=== PATIENT | male | born 1965 | race Caucasian/White ===

== ENCOUNTER → 2018-12-30 | Outpatient (CLI) | payer BC ==
--- NOTE | 2018-12-30 21:28 | CONS ---
CONSULTATION DATE OF SERVICE: 12/30/2018 53-year-old gentleman who has been evaluated in the sleep center for possible obstructive sleep apnea-hypopnea syndrome. HISTORY OF PRESENT ILLNESS/SLEEP WAKE EVALUATION: Patient usual sleep schedule on working days from around 10 to 11 p.m. until 5:45 am and on weekends from 11 to midnight until 7 or 8 a.m. Usually no problems with falling asleep, although he has TV set in bedroom. Sleeps on the side position. Loud snoring, witnessed episodes of stopped breathing during the sleep. Episodes of restless legs. The patient wakes up from sleep about 3 times with 1 episode of nocturia. Sometimes he started to see dreams site while falling asleep. Possible hyponogogical hallucinations. No history of sleep paralysis or cataplexy. Patient may take occasionally naps in the middle afternoon. [place] Sleepiness Scale increased to 11. He has difficulties to pay attention. Problems with concentration, irritability and anxiety. PAST MEDICAL HISTORY: Positive for acid reflux, Haji's esophagus. Allergies, hypertension. Nasal fracture. PAST SURGICAL HISTORY: Hemorrhoidectomy, three procedures for improving Haji's esophagus. MEDICATIONS: Nexium, Zyrtec, hydrochlorothiazide, amlodipine. SOCIAL HISTORY: Positive for smoking on and off up to 30 years, about one pack a day. Alcohol consumption occasional. FAMILY HISTORY: Hypertension, asthma, diabetes, acid reflux. PHYSICAL EXAM: gentleman without distress. BP 139/92, HR 78, RR 16, height 5 feet 7 inches, weight 186, BMI 29.1. Oxygen saturation at room air 97%. Temperature 98.7. Oropharynx: Extremely low position of soft palate. Mallampati 4. Restriction of nasal breathing. Nasal septum deviation. Neck 15-1/2 inches in circumference. Abdomen slightly obese. Neck Supple, no JVD. Thyroid is not palpable. LUNGS Clear to percussion and to auscultation. Good air exchange. No wheezing or rhonchi. HEART S1, S2 regular. No murmurs, gallops, or rubs. ABDOMEN: Slightly obese. Soft and nontender. Bowel sounds are present. No organomegaly appreciated. EXTREMITIES No clubbing or cyanosis. ELECTRO OPTICS ENGINEER Awake, alert, and oriented X3. Cranial nerves 2 to 7 intact. There is no fasciculation or atrophy. noted. No focal deficits observed. IMPRESSION: 1. Loud snoring, witnessed episodes of stopped breathing during the sleep, extremely low soft palate, Mallampati 4, sleepiness, obstructive sleep apnea-hypopnea syndrome. 2. Overweight, borderline to obesity BMI 29.1. 3. Acid reflux. 4. History of Haji's esophagus, status post three procedures of treatment. 5. Allergy. 6. Hypertension. 7. Status post hemorrhoidectomy. 8. History of nasal fracture, possibly nasal septum deviation, restriction of nasal breathing. PLAN: 1. Polysomnography for evaluation of patient's breathing during sleep. 2. CPAP/BiPAP titration if sleep study confirms obstructive sleep apnea-hypopnea syndrome. 3. Preferable position during sleep on the side. 4. No driving if patient feels any sleepiness. 5. I will see patient for follow up visit to explain results of testing and following plan. Thank you very much for referring this patient for consultation. Sincerely, Óscar Bernal MD, PhD, FAASM Diplomat of [place] [employer] [place] [employer] [facility] [place] MMODL / EMAN: [id number] /
== END | disposition home or self-care (01) ==
LOC: SLEEP 13:16
PROVIDERS: ATTEND Internal Medicine
DX: G47.33 Obstructive sleep apnea (adult) (pediatric) (principal); E66.9 Obesity, unspecified; K21.9 Gastro-esophageal reflux disease without esophagitis; I10 Essential (primary) hypertension; F17.210 Nicotine dependence, cigarettes, uncomplicated; T78.40XA Allergy, unspecified, initial encounter; Z68.29 Body mass index [BMI] 29.0-29.9, adult; Z87.19 Personal history of other diseases of the digestive system; Z87.81 Personal history of (healed) traumatic fracture; Z98.890 Other specified postprocedural states; Z79.899 Other long term (current) drug therapy
CPT/HCPCS: 99211

== ENCOUNTER → 2023-12-29 | Outpatient (CLI) | payer OTHER ==
--- NOTE | 2023-12-30 16:57 | CTL ---
EXAMINATION TYPE: CT Low Dose Lung DATE OF EXAM: 12/29/2023 4:27 PM CLINICAL INDICATION:Male, 58 years old with history of Z12.2 SCRN FOR LUNG CANCER,F17.210 NICOTINE DE PEND; personal tobacco use , history of tobacco use. COMPARISON: 03/25/2014. TECHNIQUE: Multiple axial non-contrast scans were obtained from approximately the lung apices through the upper abdomen. Coronal and sagittal reformatted images were obtained. Low dose technique was uti lized. CT DLP: 62 mGycm, Automated exposure control for dose reduction was used. CT Contrast: Contrast used: None Oral contrast used: None FINDINGS: ======== Lack of intravenous contrast and low dose technique limits the evaluation of the vascular and soft ti ssue structures. LUNGS: No evidence of pulmonary fibrosis. No evidence of focal consolidation, pneumothorax or pleural effusion. Centrilobular emphysema changes. Nodules: RUL: 3 mm series 9 image 29 calcified granuloma image 20 measuring 3 mm. RML: Subpleural 2-3 mm nodules along the middle lobe series 9 image 37 36 has examples are felt t o be atelectasis or scarring are stable from prior. RLL: Calcified granuloma image 33. AMINA: None. LLL: 4 mm image 48 AIRWAY: Patent and unremarkable. HEART: Size within normal limits. MEDIASTINUM: No gross evidence of adenopathy. Moderate hiatal hernia. VASCULATURE: No aortic aneurysm. MUSCULOSKELETAL: Mild disc degeneration changes are present throughout the thoracolumbar spine. SOFT TISSUES/LYMPH NODES: Unremarkable. LOWER NECK: No significant findings. UPPER ABDOMEN: No significant findings. IMPRESSION: 1. No clinically significant pulmonary nodules. 2. Mild emphysema. CT LUNG RAD AND CT CHEST RECOMMENDATION: Lung-Rad 2 Benign Appearance or Behavior: Continue annual sc reening with LDCT in 12 months. S Modifier (other clinically significant findings): None Recommend smoking cessation (if current smoker), or continuation of smoking cessation (if prior smoke r). Annual screening for lung cancer with low-dose computed tomography is recommended in adults ages 55 to 77 years who have a 30 pack-year smoking history and currently smoke or have quit within the pa st 15 years. Screening should be discontinued once a person has not smoked for 15 years or develops a health problem that substantially limits life expectancy or the ability or willingness to have curat jackson lung surgery. Lung rads 2021 [email or web address]
== END | disposition home or self-care (01) ==
LOC: RADCTMAIN 15:50
PROVIDERS: ATTEND Family Medicine
DX: Z12.2 Encounter for screening for malignant neoplasm of respiratory organs (principal); J43.2 Centrilobular emphysema; F17.210 Nicotine dependence, cigarettes, uncomplicated
CPT/HCPCS: 71271

== ENCOUNTER 2024-02-15 01:27 | Emergency (ER) | payer OTHER ==
--- NOTE | 2024-02-15 01:51 | ED ---
Weakness HPI - General Chief complaint: Weakness Stated complaint: Weakness, Pain all over Time Seen by Provider: 02/15/24 01:33 Source: patient, RN notes reviewed, old records reviewed Mode of arrival: ambulatory Limitations: no limitations - History of Present Illness Initial comments: This is a 58-year-old this male presents to the ER for evaluation of bodyaches and pains generalized body aches pains and weakness. States symptoms been going on for a while now worsening today, he does admit to increasing workload decreasing rest not eating and drinking well and not feeling well. Patient has no fevers denies sick contacts or recent travel history MD Complaint: generalized weakness, lack of energy, difficulty walking -: days(s) Location: generalized Severity: moderate Consistency: constant Improves with: evening Worsens with: none Context: history of similar Associated Symptoms: denies other symptoms - Related Data Home Medications Medication Instructions Recorded Confirmed Nicotine 21Mg/24Hr Patch [Habitrol 1 each TRANSDERM DAILY 08/03/15 08/08/15 21Mg/24Hr Patch] Omeprazole 20 mg PO DAILY 08/03/15 08/08/15 Allergies Allergy/AdvReac Type Severity Reaction Status Date / Time No Known Allergies Allergy Verified 02/15/24 01:31 Review of Systems ROS Statement: Those systems with pertinent positive or pertinent negative responses have been documented in the HPI. ROS Other: All systems not noted in ROS Statement are negative. Past Medical History Past Medical History: GERD/Reflux, Hypertension Additional Past Medical History / Comment(s): HTN-resolved no longer on meds,Haji's Esophagus History of Any Multi-Drug Resistant Organisms: None Reported Additional Past Surgical History / Comment(s): EGD,colonoscopy,hemorrhoidectomy Past Anesthesia/Blood Transfusion Reactions: No Reported Reaction Additional Past Anesthesia/Blood Transfusion Reaction / Comment(s): no hx blood transfusion Past Psychological History: No Psychological Hx Reported Smoking Status: Current every day smoker Past Alcohol Use History: Occasional Past Drug Use History: None Reported - Past Family History Father Family Medical History: No Reported History Mother Additional Family Medical History / Comment(s): brain aneurysm General Exam Limitations: no limitations General appearance: alert, in no apparent distress, anxious, in distress Head exam: Present: atraumatic, normocephalic, normal inspection Eye exam: Present: normal appearance, PERRL, EOMI. Absent: scleral icterus, conjunctival injection, periorbital swelling ENT exam: Present: normal exam, mucous membranes moist Neck exam: Present: normal inspection. Absent: tenderness, meningismus, lymphadenopathy Respiratory exam: Present: normal lung sounds bilaterally. Absent: respiratory distress, wheezes, rales, rhonchi, stridor Cardiovascular Exam: Present: regular rate, normal rhythm, normal heart sounds. Absent: systolic murmur, diastolic murmur, rubs, gallop, clicks GI/Abdominal exam: Present: soft, normal bowel sounds. Absent: distended, tenderness, guarding, rebound, rigid Extremities exam: Present: normal inspection, full ROM, normal capillary refill. Absent: tenderness, pedal edema, joint swelling, calf tenderness Back exam: Present: normal inspection Neurological exam: Present: alert, oriented X3, CN II-XII intact Psychiatric exam: Present: normal affect, normal mood Skin exam: Present: warm, dry, intact, normal color. Absent: rash Course Vital Signs 02/15/24 02/15/24 02/15/24 01:28 03:31 04:47 Temperature 98.3 F 97.8 F Pulse Rate 90 74 71 Respiratory 18 17 16 Rate Blood Pressure 148/95 123/80 121/80 O2 Sat by Pulse 97 96 96 Oximetry - Reevaluation(s) Reevaluation #1: 02/15/24 02:02 Medical records reviewed Reevaluation #2: 02/15/24 02:02 Patient informed of results and questions answered Reevaluation #3: patient is informed of results and questions answered Reevaluation #4: Was pt. sent in by a medical professional or institution (, PA, OYSTERMAN, urgent care, hospital, or long term...) When possible be specific @ -no Did you speak to anyone other than the patient for history (EMS, parent, family, police, friend...)? What history was obtained from this source @ -no Did you review nursing and triage notes (agree or disagree)? Why? @ -agree Are old charts reviewed (outside hosp., previous admission, EMS record, old EKG, old radiological studies, urgent care reports/EKG's, long term records)? Report findings @ -yes Differential Diagnosis (chest pain, altered mental status, abdominal pain women, abdominal pain men, vaginal bleeding, weakness, fever, dyspnea, syncope, headache, dizziness, GI bleed, back pain, seizure, CVA, palpatations, mental health, musculoskeletal)? @ -prior EKG interpreted by me (3pts min.). @ -no X-rays interpreted by me (1pt min.). @ -yes negative for acute disease CT interpreted by me (1pt min.). @ -no U/S interpreted by me (1pt. min.). @ -no What testing was considered but not performed or refused? (CT, X-rays, U/S, labs)? Why? @ -none What meds were considered but not given or refused? Why? @ -none Did you discuss the management of the patient with other professionals (professionals i.e. DrOmer, PA, OYSTERMAN, lab, RT, psych nurse, nursing home social worker, hotbed transfer operator, teacher, plain clothes police officer, case folder)? Give summary @ -no Was smoking cessation discussed for >3mins.? @ -no Was critical care preformed (if so, how long)? @ -no Were there social determinants of health that impacted care today? How? (Homelessness, low income, unemployed, alcoholism, drug addiction, transportation, low edu. Level, literacy, decrease access to med. care, senior care, rehab)? @ -none Was there de-escalation of care discussed even if they declined (Discuss DNR or withdrawal of care, Hospice)? DNR status @ -no What co-morbidities impacted this encounter? (DM, HTN, Smoking, COPD, CAD, Cancer, CVA, ARF, Chemo, Hep., AIDS, mental health diagnosis, sleep apnea, morbid obesity)? @ -none Was patient admitted / discharged? Hospital course, mention meds given and route, prescriptions, significant lab abnormalities, going to OR and other pertinent info. @ - 58 Male to the ER for evaluation patient can be discharged home is currently feels well with no acute findings of symptoms Discharged Undiagnosed new problem with uncertain prognosis? @ -no Drug Therapy requiring intensive monitoring for toxicity (Heparin, Nitro, Insulin, Cardizem)? @ -no Were any procedures done? @ -no Diagnosis/symptom? @ -Weakness Acute, or Chronic, or Acute on Chronic? @ -Acute Uncomplicated (without systemic symptoms) or Complicated (systemic symptoms)? @ -Complicated Side effects of treatment? @ -no Exacerbation, Progression, or Severe Exacerbation? @ -exacerbation Poses a threat to life or bodily function? How? (Chest pain, USA, CO, pneumonia, PE, COPD, DKA, ARF, appy, cholecystitis, CVA, Diverticulitis, Homicidal, Suicidal, threat to staff... and all critical care pts) @ -yes Reevaluation #5: Differential Weakness: Hypoglycemia, shock, sepsis, hyponatremia, anemia, infection, CO, ETOH, adverse medicine reaction, overdose, stroke, this is not meant to be an all-inclusive list. EKG Findings - EKG Comments: EKG Findings:: EKG is sinus 82 VT 150 QRS 84 QTc 430 - EKG Results: EKG: interpreted by CIARAN Medical Decision Making - Medical Decision Making 58 Male to the ER for evaluation patient can be discharged home is currently feels well with no acute findings of symptoms - Lab Data Result diagrams: 02/15/24 02:01 02/15/24 02:01 Lab Results 02/15/24 02/15/24 02/15/24 Range/Units 02:01 02:01 02:01 WBC 10.6 (3.8-10.6) k/uL RBC 4.76 (4.30-5.90) m/uL Hgb 13.8 (13.0-17.5) gm/dL Hct 40.8 (39.0-53.0) % MCV 85.8 (80.0-100.0) fL MCH 29.1 (25.0-35.0) pg MCHC 33.9 (31.0-37.0) g/dL RDW 12.0 (11.5-15.5) % Plt Count 404 (150-450) k/uL MPV 7.5 Neutrophils % 71 % Lymphocytes % 16 % Monocytes % 9 % Eosinophils % 2 % Basophils % 1 % Neutrophils # 7.5 (1.3-7.7) k/uL Lymphocytes # 1.7 (1.0-4.8) k/uL Monocytes # 1.0 (0-1.0) k/uL Eosinophils # 0.2 (0-0.7) k/uL Basophils # 0.1 (0-0.2) k/uL PT 10.2 (10.0-12.5) sec INR 0.9 (<1.2) APTT 26.9 (22.0-30.0) sec Sodium (137-145) mmol/L Potassium (3.5-5.1) mmol/L Chloride (98-107) mmol/L Carbon Dioxide (22-30) mmol/L Anion Gap mmol/L BUN (9-20) mg/dL Creatinine (0.66-1.25) mg/dL Est GFR (CKD-EPI)AfAm (>60 ml/min/1.73 sqM) Est GFR (CKD-EPI)NonAf (>60 ml/min/1.73 sqM) Glucose (74-99) mg/dL Plasma Lactic Acid Pollo (0.7-2.0) mmol/L Calcium (8.4-10.2) mg/dL Phosphorus (2.5-4.5) mg/dL Magnesium (1.6-2.3) mg/dL Total Bilirubin (0.2-1.3) mg/dL AST (17-59) U/L ALT (4-49) U/L Alkaline Phosphatase (38-126) U/L Creatine Kinase (55-170) U/L Troponin I (0.000-0.034) ng/mL NT-Pro-B Natriuret Pep pg/mL Total Protein (6.3-8.2) g/dL Albumin (3.5-5.0) g/dL TSH (0.465-4.680) mIU/L Urine Color Yellow Urine Appearance Clear (Clear) Urine pH 6.0 (5.0-8.0) Ur Specific [place] 1.021 (1.001-1.035) Urine Protein Trace H (Negative) Urine Glucose (UA) Negative (Negative) Urine Ketones Negative (Negative) Urine Blood Small H (Negative) Urine Nitrite Negative (Negative) Urine Bilirubin Negative (Negative) Urine Urobilinogen <2.0 (<2.0) mg/dL Ur Leukocyte Esterase Negative (Negative) Urine RBC 3 (0-5) /hpf Urine WBC 1 (0-5) /hpf Urine Mucus Few H (None) /hpf Influenza Type A (PCR) (Not Detectd) Influenza Type B (PCR) (Not Detectd) RSV (PCR) (Not Detectd) SARS-CoV-2 (PCR) (Not Detectd) 02/15/24 02/15/24 02/15/24 Range/Units 02:01 02:01 02:01 WBC (3.8-10.6) k/uL RBC (4.30-5.90) m/uL Hgb (13.0-17.5) gm/dL Hct (39.0-53.0) % MCV (80.0-100.0) fL MCH (25.0-35.0) pg MCHC (31.0-37.0) g/dL RDW (11.5-15.5) % Plt Count (150-450) k/uL MPV Neutrophils % % Lymphocytes % % Monocytes % % Eosinophils % % Basophils % % Neutrophils # (1.3-7.7) k/uL Lymphocytes # (1.0-4.8) k/uL Monocytes # (0-1.0) k/uL Eosinophils # (0-0.7) k/uL Basophils # (0-0.2) k/uL PT (10.0-12.5) sec INR (<1.2) APTT (22.0-30.0) sec Sodium 137 (137-145) mmol/L Potassium 3.6 (3.5-5.1) mmol/L Chloride 102 (98-107) mmol/L Carbon Dioxide 25 (22-30) mmol/L Anion Gap 10 mmol/L BUN 14 (9-20) mg/dL Creatinine 0.74 (0.66-1.25) mg/dL Est GFR (CKD-EPI)AfAm >90 (>60 ml/min/1.73 sqM) Est GFR (CKD-EPI)NonAf >90 (>60 ml/min/1.73 sqM) Glucose 96 (74-99) mg/dL Plasma Lactic Acid Pollo 1.0 (0.7-2.0) mmol/L Calcium 8.7 (8.4-10.2) mg/dL Phosphorus 3.7 (2.5-4.5) mg/dL Magnesium 1.7 (1.6-2.3) mg/dL Total Bilirubin 0.9 (0.2-1.3) mg/dL AST 19 (17-59) U/L ALT 15 (4-49) U/L Alkaline Phosphatase 103 (38-126) U/L Creatine Kinase 47 L (55-170) U/L Troponin I <0.012 (0.000-0.034) ng/mL NT-Pro-B Natriuret Pep 210 pg/mL Total Protein 6.6 (6.3-8.2) g/dL Albumin 3.7 (3.5-5.0) g/dL TSH 1.440 (0.465-4.680) mIU/L Urine Color Urine Appearance (Clear) Urine pH (5.0-8.0) Ur Specific [place] (1.001-1.035) Urine Protein (Negative) Urine Glucose (UA) (Negative) Urine Ketones (Negative) Urine Blood (Negative) Urine Nitrite (Negative) Urine Bilirubin (Negative) Urine Urobilinogen (<2.0) mg/dL Ur Leukocyte Esterase (Negative) Urine RBC (0-5) /hpf Urine WBC (0-5) /hpf Urine Mucus (None) /hpf Influenza Type A (PCR) (Not Detectd) Influenza Type B (PCR) (Not Detectd) RSV (PCR) (Not Detectd) SARS-CoV-2 (PCR) (Not Detectd) 02/15/24 Range/Units 02:01 WBC (3.8-10.6) k/uL RBC (4.30-5.90) m/uL Hgb (13.0-17.5) gm/dL Hct (39.0-53.0) % MCV (80.0-100.0) fL MCH (25.0-35.0) pg MCHC (31.0-37.0) g/dL RDW (11.5-15.5) % Plt Count (150-450) k/uL MPV Neutrophils % % Lymphocytes % % Monocytes % % Eosinophils % % Basophils % % Neutrophils # (1.3-7.7) k/uL Lymphocytes # (1.0-4.8) k/uL Monocytes # (0-1.0) k/uL Eosinophils # (0-0.7) k/uL Basophils # (0-0.2) k/uL PT (10.0-12.5) sec INR (<1.2) APTT (22.0-30.0) sec Sodium (137-145) mmol/L Potassium (3.5-5.1) mmol/L Chloride (98-107) mmol/L Carbon Dioxide (22-30) mmol/L Anion Gap mmol/L BUN (9-20) mg/dL Creatinine (0.66-1.25) mg/dL Est GFR (CKD-EPI)AfAm (>60 ml/min/1.73 sqM) Est GFR (CKD-EPI)NonAf (>60 ml/min/1.73 sqM) Glucose (74-99) mg/dL Plasma Lactic Acid Pollo (0.7-2.0) mmol/L Calcium (8.4-10.2) mg/dL Phosphorus (2.5-4.5) mg/dL Magnesium (1.6-2.3) mg/dL Total Bilirubin (0.2-1.3) mg/dL AST (17-59) U/L ALT (4-49) U/L Alkaline Phosphatase (38-126) U/L Creatine Kinase (55-170) U/L Troponin I (0.000-0.034) ng/mL NT-Pro-B Natriuret Pep pg/mL Total Protein (6.3-8.2) g/dL Albumin (3.5-5.0) g/dL TSH (0.465-4.680) mIU/L Urine Color Urine Appearance (Clear) Urine pH (5.0-8.0) Ur Specific [place] (1.001-1.035) Urine Protein (Negative) Urine Glucose (UA) (Negative) Urine Ketones (Negative) Urine Blood (Negative) Urine Nitrite (Negative) Urine Bilirubin (Negative) Urine Urobilinogen (<2.0) mg/dL Ur Leukocyte Esterase (Negative) Urine RBC (0-5) /hpf Urine WBC (0-5) /hpf Urine Mucus (None) /hpf Influenza Type A (PCR) Not Detected (Not Detectd) Influenza Type B (PCR) Not Detected (Not Detectd) RSV (PCR) Not Detected (Not Detectd) SARS-CoV-2 (PCR) Not Detected (Not Detectd) - EKG Data -: EKG Interpreted by Me Disposition Clinical Impression: Dehydration, Weakness, Myalgia Disposition: HOME SELF-CARE Condition: Fair Instructions (If sedation given, give patient instructions): Weakness (ED) Is patient prescribed a controlled substance at d/c from ED?: No Referrals: Nat Sanz MD [Primary Care Provider] - 1-2 days
[2024-02-15] MEDS: SODIUM CHLORIDE 0.9% 1,000 ML IV STA ×2 (02:10→03:22)
[2024-02-15] MEDS: SODIUM CHLORIDE 0.9% 500 ML 500 ML IV STA (02:12)
[2024-02-15] MEDS: ACETAMINOPHEN TAB 500 MG TAB PO STA (02:13)
[2024-02-15] MEDS: KETOROLAC 15 MG/ML 1 ML VIAL IVP STA (02:16)
[2024-02-15] MEDS: MORPHINE SULFATE 4 MG/ML SYRINGE IV STA (02:19)
[2024-02-15 02:59] LABS: Basophils # (A) 0.1 k/uL (0-0.2); Basophils % (A) 1 %; Eosinophils # (A) 0.2 k/uL (0-0.7); Eosinophils % (A) 2 %; HCT 40.8 % (39.0-53.0); HGB 13.8 gm/dL (13.0-17.5); Lymphocytes # (A) 1.7 k/uL (1.0-4.8); Lymphocytes % (A) 16 %; MCH 29.1 pg (25.0-35.0); MCHC 33.9 g/dL (31.0-37.0); MCV 85.8 fL (80.0-100.0); Mean Platelet Volume 7.5; Monocytes % (A) 9 %; Neutrophils # (A) 7.5 k/uL (1.3-7.7); Neutrophils % (A) 71 %; Platelet Count 404 k/uL (150-450); RBC 4.76 m/uL (4.30-5.90); WBC 10.6 k/uL (3.8-10.6)
[2024-02-15 03:34] LABS: ALT 15 U/L (4-49); AST 19 U/L (17-59); African American GFR (CKD) >90 (>60 ml/min/1.73 sqM); Albumin 3.7 g/dL (3.5-5.0); Alkaline Phosphatase 103 U/L (38-126); Anion Gap 10 mmol/L; Blood Urea Nitrogen 14 mg/dL (9-20); Calcium 8.7 mg/dL (8.4-10.2); Carbon Dioxide 25 mmol/L (22-30); Chloride 102 mmol/L (98-107); Creatine Kinase 47 U/L (55-170); Glucose 96 mg/dL (74-99); Magnesium 1.7 mg/dL (1.6-2.3); Non-African American GFR(CKD) >90 (>60 ml/min/1.73 sqM); Phosphorus 3.7 mg/dL (2.5-4.5); Potassium 3.6 mmol/L (3.5-5.1); Sodium 137 mmol/L (137-145); Total Bilirubin 0.9 mg/dL (0.2-1.3); Total Protein 6.6 g/dL (6.3-8.2)
[2024-02-15 03:42] LABS: NT-Pro-B-Type Natriuretic Pept 210 pg/mL
[2024-02-15 04:28] LABS: INR 0.9 (<1.2); Partial Thromboplastin Time 26.9 sec (22.0-30.0); Prothrombin Time 10.2 sec (10.0-12.5)
[2024-02-15 04:50] VITALS: BP 121/80; PULSE 71; RESP 16; TEMP 97.8
[2024-02-15 04:58] LABS: Appearance,Urine Clear (Clear); Bilirubin,Urine Negative (Negative); Blood,Urine Small (Negative); Color,Urine Yellow; Glucose,Urine (UA) Negative (Negative); Ketones,Urine Negative (Negative); Leukocyte Esterase,Urine Negative (Negative); Mucus,Urine Few /hpf; Nitrite,Urine Negative (Negative); Protein,Urine Trace (Negative); RBC,Urine 3 /hpf (0-5); Specific Gravity,Urine 1.021 (1.001-1.035); Urobilinogen,Urine <2.0 mg/dL (<2.0); WBC,Urine 1 /hpf (0-5)
== END 2024-02-15 04:49 | disposition home or self-care (01) ==
LOC: EC 01:27
CPT/HCPCS: 36415; 80053; 81001; 82550; 83605; 83735; 83880; 84100; 84443; 84484; 85025; 85610; 85730; 87636; 93005; 96361; 96374; 96375; 99285

== ENCOUNTER → 2024-04-21 | Outpatient (CLI) | payer OTHER ==
--- NOTE | 2024-04-23 15:03 | XR ---
EXAMINATION TYPE: XR hand complete bilateral DATE OF EXAM: 04/21/2024 9:44 AM COMPARISON: None. CLINICAL INDICATION: Male, 58 years old with history of M25.541 PAIN IN JOINTS OF RIGHT HAND M25.542 R20.2, TECHNIQUE: 3 view(s) obtained each hand. FINDINGS: Right hand: There is an old fracture fifth metacarpal. There is degenerative joint change of the dist al interphalangeal joint space middle finger. Mild diffuse joint space narrowing is otherwise present to the remaining portions of the right hand no acute fractures evident. Soft tissues appear normal Left hand: Mild diffuse narrowing of joint spaces is present. No acute fracture or dislocation eviden t. Soft tissues appear normal. IMPRESSION: 1. Diffuse joint space narrowing likely on the basis of mild osteoarthritic degenerative change bila teral hands [facility], , 04/23/2024 3:01 PM
--- NOTE | 2024-04-23 15:05 | XR ---
EXAMINATION TYPE: XR wrist complete BILATERAL DATE OF EXAM: 04/21/2024 9:44 AM COMPARISON: None. CLINICAL INDICATION: Male, 58 years old with history of M25.541 PAIN IN JOINTS OF RIGHT HAND M25.542 R20.2, TECHNIQUE: 4 view(s) obtained each wrist. FINDINGS: No acute fracture or dislocation evident. Joint spaces appear preserved. Soft tissues are normal. If there is pain at the anatomic snuff box, nuclear medicine bone scan could BE performed for additional evaluation. IMPRESSION: 1. No acute osseous abnormality bilateral wrists [facility], , 04/23/2024 3:03 PM
--- NOTE | 2024-04-23 15:08 | XR ---
EXAMINATION TYPE: XR cervical spine comp DATE OF EXAM: 04/21/2024 9:44 AM COMPARISON: None. CLINICAL INDICATION: Male, 58 years old with history of M25.541 PAIN IN JOINTS OF RIGHT HAND M25.542 R20.2, TECHNIQUE: 5 view(s) obtained. FINDINGS: There is mild foraminal narrowing C5-6 on the right. Severe foraminal narrowing is C5-6 on the left. Prevertebral space is normal. Disc space narrowing is present C3-4 through C5-6. Some posterior disc space narrowing at C6-7 is present. Posterior spinal lamellar line is intact. Odontoid tip is limited with overlying incisors. IMPRESSION: 1. Degenerative disc changes mid cervical spine. 2. Severe left and mild right foraminal narrowing C5-6. [facility], , 04/23/2024 3:06 PM
== END | disposition home or self-care (01) ==
LOC: RADXRMAIN 08:55
PROVIDERS: ATTEND Family Medicine
DX: M47.812 Spondylosis without myelopathy or radiculopathy, cervical region (principal); M25.541 Pain in joints of right hand; R20.0 Anesthesia of skin; M25.542 Pain in joints of left hand
CPT/HCPCS: 72050

== ENCOUNTER → 2024-05-25 | Outpatient (CLI) | payer OTHER ==
--- NOTE | 2024-05-25 09:39 | MR ---
INDICATION: Patient age:Male; 58 years old; Reason for study: M54.2 NECK PAIN R20.0 HAND PARESTHESIAS; [facility]. COMPARISON: Cervical spine radiograph 04/21/2024. TECHNIQUE: Multi planar, multi sequence imaging was performed of the cervical spine. No Gadolinium wa s given. FINDINGS: Alignment: The cervical vertebral bodies have preserved heights. Alignment is within normal limits gi guillermo patient positioning. Bones: Type II Modic endplate changes around the C4-C5 disc. Mild multilevel anterior osteophytosis. Cord: The spinal cord is unremarkable with regards to their signal intensity and morphology. Discs: Multilevel disc desiccation is present. C2-C3: No significant disc pathology. The spinal canal is patent. No neural foraminal stenosis. C3-C4: Broad-based disc bulge without significant effacement of the anterior thecal sac. Uncovertebr al joint hypertrophy with moderate right and mild left neural foraminal stenosis. C4-C5: Broad-based disc bulge with minimal effacement of the anterior thecal sac. Uncovertebral join t hypertrophy with moderate right and mild left neural foraminal stenosis. C5-C6: Broad-based disc bulge with mild effacement of the anterior thecal sac. Uncovertebral joint h ypertrophy with moderate bilateral neural foraminal stenosis. C6-C7: Broad-based disc bulge with mild effacement of the anterior thecal sac. No neural foraminal s tenosis. C7-T1: No significant disc pathology. The spinal canal is patent. No neural foraminal stenosis. Other: None. IMPRESSION: [id number] disc degeneration with associated osteoarthritic changes as described above. [facility], , 05/25/2024 9:36 AM
== END | disposition home or self-care (01) ==
LOC: RADMRIMAIN 06:55
PROVIDERS: ATTEND Family Medicine
DX: M50.30 Other cervical disc degeneration, unspecified cervical region (principal); R20.2 Paresthesia of skin
CPT/HCPCS: 72141